=== PATIENT | female | born 1980 | race Caucasian/White ===

== ENCOUNTER 2022-05-22 19:08 | Emergency (ER) | payer OTHER ==
[~2022-05-22] VITALS: Ht 162.6 cm; Wt 57.7 kg
[2022-05-22 20:13] VITALS: BP 144/96
== END 2022-05-22 20:33 ==
LOC: ER 19:09
DX: Z04.1 Encounter for examination and observation following transport accident (principal); Z79.899 Other long term (current) drug therapy; V87.7XXA Person injured in collision between other specified motor vehicles (traffic), initial encounter; Y93.89 Activity, other specified; Y92.89 Other specified places as the place of occurrence of the external cause; Y99.8 Other external cause status
CPT/HCPCS: 99283

== ENCOUNTER 2022-06-24 20:17 | Emergency (ER) | payer OTHER ==
[~2022-06-24] VITALS: Ht 160 cm; Wt 72.7 kg
[2022-06-24 20:32] VITALS: BP 133/87
== END 2022-06-24 21:18 | disposition home or self-care (01) ==
LOC: ER 20:18
DX: Z04.1 Encounter for examination and observation following transport accident (principal); V87.7XXA Person injured in collision between other specified motor vehicles (traffic), initial encounter; Y93.89 Activity, other specified; Y92.488 Other paved roadways as the place of occurrence of the external cause; Y99.8 Other external cause status
CPT/HCPCS: 99283